=== PATIENT | female | born 1955 ===

== ENCOUNTER 2017-12-13 05:44 | Observation (INO) | payer OTHER ==
[2017-12-13 05:44] VITALS: BMI 29.5
[2017-12-13] MEDS ORDERED: Aspirin 325 mg EC Tablets PO STA (06:04)
--- NOTE | 2017-12-13 06:04 | C.PDOC ---
History Of Present Illness 62 year old female presents to the ED for evaluation of palpitations. Patient reports she was woken up from sleep when she felt her heart racing earlier today. Patient states feeling a little anxious. Patient denies fever, chills, nausea, vomit, CP, SOB, dizziness, headache, numbness, weakness. Time Seen by Provider: 12/13/17 06:04 Chief Complaint (Nursing): Palpitations History Per: Patient History/Exam Limitations: no limitations Onset/Duration Of Symptoms: Hrs Current Symptoms Are (Timing): Still Present Recent travel outside of the [place]: No Additional History Per: Patient Past Medical History Reviewed: Historical Data, Nursing Documentation, Vital Signs Vital Signs: Last Vital Signs Temp 97.9 F 12/13/17 05:50 Pulse 92 H 12/13/17 05:50 Resp 16 12/13/17 05:50 BP 168/84 H 12/13/17 05:50 Pulse Ox 98 12/13/17 05:50 - Medical History PMH: Anxiety, Arthritis, Diabetes, Gastritis, HTN, Hypercholesterolemia, Osteoporosis Denies: Chronic Kidney Disease Surgical History: Cholecystectomy - [facility] Procedures CLOSED ENDOSCOPIC BIOPSY OF LARGE INTESTINE (12/11/13) CORONAR ARTERIOGR-2 CATH (06/27/14) INJECT/INFUSE NEC (10/10/13) INJECTION INTO TENDON (10/21/13) LEFT HEART CARDIAC CATH (06/27/14) LT HEART ANGIOCARDIOGRAM (06/27/14) PHYSICAL THERAPY NEC (08/21/13) Family History: States: No Known Family Hx - Social History Hx Alcohol Use: No Hx Substance Use: No - Immunization History Hx Tetanus Toxoid Vaccination: No Hx Influenza Vaccination: No Hx Pneumococcal Vaccination: No Review Of Systems Constitutional: Negative for: Fever, Chills Cardiovascular: Positive for: Palpitations. Negative for: Chest Pain Respiratory: Negative for: Cough, Shortness of Breath Gastrointestinal: Negative for: Nausea, Vomiting, Abdominal Pain Skin: Negative for: Rash Neurological: Negative for: Weakness, Numbness, Headache, Dizziness Physical Exam - Physical Exam Appears: Non-toxic, No Acute Distress Skin: Warm, Dry Head: Normacephalic Eye(s): bilateral: Normal Inspection Neck: Supple Chest: Symmetrical Cardiovascular: Rhythm Regular Respiratory: No Rales, No Rhonchi, No Wheezing Gastrointestinal/Abdominal: Soft, No Tenderness, No Guarding, No Rebound Extremity: Bilateral: Atraumatic, Normal Color And Temperature, Normal ROM Neurological/Psych: Oriented x3, Normal Speech, Normal Cognition Gait: Steady ED Course And Treatment ECG: Interpreted By Me, Viewed By Me ECG Rhythm: Sinus Rhythm (90), Nonspecific Changes O2 Sat by Pulse Oximetry: 98 (ON RA) Pulse Ox Interpretation: Normal - Radiology CXR: Interpreted by Me, Viewed By Me CXR Interpretation: No: Infiltrates, Fracture, Pnemothorax Progress Note: Plan: - EKG. - Labs. - CXR. - Aspirin 325 mg PO. - UA Disposition Counseled Patient/Family Regarding: Studies Performed, Diagnosis - Disposition Disposition Time: 06:04 Condition: FAIR Forms: [employer] [facility] ([employer]) - Clinical Impression Clinical Impression: Palpitations - Scribe Statement The provider has reviewed the documentation as recorded by the Scribe Bernardino Valdez All medical record entries made by the Scribe were at my direction and personally dictated by me. I have reviewed the chart and agree that the record accurately reflects my personal performance of the history, physical exam, medical decision making, and the department course for this patient. I have also personally directed, reviewed, and agree with the discharge instructions and disposition. Physician Patient Turnover Patient Signed Over To: Vignesh Vidal Handoff Comments: pending labs, re-eval and dispo
[2017-12-13 06:18] LABS: BASO % 0.6 % (0.0-2.0); EOS # 0.3 K/uL (0.0-0.7); EOS % 4.9 % (0.0-4.0); HEMOGLOBIN 13.3 g/dL (11.0-16.0); LYMPH # 2.3 K/uL (1.0-4.3); LYMPH % 33.2 % (20.0-40.0); MEAN CELL VOLUME 84.3 fL (81.0-99.0); MEAN CORPUSCULAR HEMOGLOBIN 28.7 pg (27.0-31.0); MEAN CORPUSCULAR HGB CONC 34.1 g/dL (33.0-37.0); MEAN PLATELET VOLUME 7.3 fL (7.2-11.7); MONO # 0.5 K/uL (0.0-0.8); MONO % 6.5 % (0.0-10.0); NEUT # 3.8 K/uL (1.8-7.0); NEUT % 54.8 % (50.0-75.0); RBC 4.62 Mil/uL (3.80-5.20); RED CELL DISTRIBUTION WIDTH 13.8 % (11.5-14.5); WHITE BLOOD COUNT 6.9 K/uL (4.8-10.8)
[2017-12-13 06:25] LABS: PROTHROMBIN TIME 11.3 SECONDS (9.7-12.2)
[2017-12-13 06:40] LABS: ALB/GLOB RATIO 1.3 (1.0-2.1); ALBUMIN 4.3 g/dL (3.5-5.0); ALT/SGPT 39 U/L (9-52); AST/SGOT 44 U/L (14-36); BLOOD UREA NITROGEN 18 mg/dL (7-17); CALCIUM 9.3 mg/dl (8.6-10.4); GFR NON-AFRICAN AMERICAN > 60
[2017-12-13 07:36] LABS: B-TYPE NATRIURETIC PEPTIDE 37.5 pg/mL (0-900)
[2017-12-13 07:41] LABS: URINE BACTERIA RARE (<OCC); URINE BILIRUBIN NEGATIVE (NEGATIVE); URINE BLOOD NEGATIVE (NEGATIVE); URINE CLARITY Clear (Clear); URINE COLOR Straw (YELLOW); URINE GLUCOSE (UA) NORMAL (Normal); URINE LEUKOCYTE ESTERASE NEG Leu/uL (Negative); URINE PROTEIN NEGATIVE (NEGATIVE); URINE UROBILINOGEN NORMAL mg/dL (0.2-1.0)
--- NOTE | 2017-12-13 09:42 | RAD ---
Date of service: 12/13/2017 PROCEDURE: CHEST RADIOGRAPH, 1 VIEW HISTORY: chest pain COMPARISON: None available. FINDINGS: LUNGS: Clear. PLEURA: No pneumothorax or pleural fluid seen. CARDIOVASCULAR: Normal. OSSEOUS STRUCTURES: No significant abnormalities. VISUALIZED UPPER ABDOMEN: Normal. OTHER FINDINGS: None. IMPRESSION: No active disease.
[2017-12-13] MEDS ORDERED: Sodium Chloride 0.45% 1,000 ML IV SCH (11:00)
[2017-12-13] MEDS ORDERED: Glucagon Recombinant 1 mg Inj IM PRN (11:04)
[2017-12-13] MEDS ORDERED: Dextrose 50% SYRINGE Inj (50 ml) IVP PRN (11:04)
[2017-12-13] MEDS ORDERED: Dextrose 50% SYRINGE Inj (50 ml) IV PRN (11:04)
[2017-12-13] MEDS: (Novolog) Insulin Aspart, Recombinant 100 u/ml 10 ml vial SC SCH ×3 (12:17→22:16)
[2017-12-13 14:27] LABS: CK-MB 0.72 ng/mL (0.0-3.38)
[2017-12-13] MEDS ORDERED: Magnesium Sulfate 1 gm in D5W 1 GM/100 ML BAG IVPB ONE (16:00)
[2017-12-13 16:24] VITALS: RESP 20
--- NOTE | 2017-12-13 16:52 | CP.PCM.HP ---
<Izabela Bradford - Last Filed: 12/13/17 16:45> History of Present Illness - History of Present Illness History of Present Illness: 62 yo female with PMHx of DM presents with palpitations that have been going on for a month. It got particularly worse this morning to the point that she was having chest spasms and was feeling "warm" but not feverish. Patient took home BP and it was more elevated than baseline at 150-160/90s with reported baseline SBP 140s. She is a patient of Dr. Brown, who scheduled a stress test already next week. However she came to the hospital due to her chest feeling worse. She denied taking any of her home meds this morning and went straight to hospital. Patient is looking forward to seeing Dr. Brown on the inpatient floor today. Patient endorses "chest spasms" not chest pain, "warmth" not fever, headaches, lightheadedness. Denies SOB, sweats, fever, chills, sick contacts. Of not patient states she wore a holter monitor last year. The results were normal from her understanding. In the ED she got 325 mg aspirin and labwork done then was sent up to [facility] and put on telemetry. Primary Care: Dr. Hackett Treasury Assistant outpatient: Dr. Brown PMHx: DM - last A1c patient states was 6.something percent, spoke to her primary care Dr. Hackett, who said she is well controlled PSH: hysterectomy 1991 due to uterine CA, cholecystectomy 1979, heel spurs FHx: brother passed from kidney disease and had DM. Mom had DM and passed at 64 y/o from other co-morbidities (?). Patient unsure of exact cause of . Father still alive and prostate CA survivor. SHx: , denies EtOH, tobacco, and illicit drugs. Home meds: enalapril 2.5 mg daily, metformin 850 mg BID, famotidine 20 mg daily (unsure of dose), atorvastatin 10 mg daily, aspiring 81 mg daily chewable Allergies: PCN - reaction was when she was a child. Urticaria. Present on Admission - Present on Admission Any Indicators Present on Admission: Yes Past Patient History - Past Medical History & Family History Past Medical History?: Yes - Past Social History Smoking Status: Never Smoked - CARDIAC Hx Hypercholesterolemia: Yes Hx Hypertension: Yes - PULMONARY Hx Respiratory Disorders: No - NEUROLOGICAL Hx Neurological Disorder: No - HEENT Hx HEENT Problems: No - RENAL Hx Chronic Kidney Disease: No - ENDOCRINE/METABOLIC Hx Diabetes Mellitus Type 2: Yes - HEMATOLOGICAL/ONCOLOGICAL Hx Blood Disorders: No - INTEGUMENTARY Hx Dermatological Problems: No - MUSCULOSKELETAL/RHEUMATOLOGICAL Hx Arthritis: Yes Hx Osteoporosis: Yes - GASTROINTESTINAL Hx Gastritis: Yes - GENITOURINARY/GYNECOLOGICAL Hx Genitourinary Disorders: No - PSYCHIATRIC Hx Anxiety: Yes Hx Substance Use: No - SURGICAL HISTORY Hx Cholecystectomy: Yes - ANESTHESIA Hx Anesthesia: No Hx Anesthesia Reactions: No Hx Malignant Hyperthermia: No Meds Allergies/Adverse Reactions: Allergies Allergy/AdvReac Type Severity Reaction Status Date / Time Penicillins Allergy Verified 12/13/17 05:52 Physical Exam - Head Exam Head Exam: ATRAUMATIC, NORMAL INSPECTION - Eye Exam Eye Exam: EOMI, Normal appearance Pupil Exam: NORMAL ACCOMODATION, PERRL - ENT Exam ENT Exam: Mucous Membranes Moist, Normal Exam - Neck Exam Neck exam: Positive for: Normal Inspection. Negative for: Lymphadenopathy, Tenderness - Respiratory Exam Respiratory Exam: Clear to Auscultation Bilateral, NORMAL BREATHING PATTERN - Cardiovascular Exam Cardiovascular Exam: REGULAR RHYTHM - GI/Abdominal Exam GI & Abdominal Exam: Normal Bowel Sounds, Soft. absent: Diminished Bowel Sounds, Distended, Firm, Guarding, Tenderness - Extremities Exam Extremities exam: Positive for: normal inspection. Negative for: pedal edema, tenderness Additional comments: peripheral pulses strong, no extremity edema - Neurological Exam Neurological exam: Alert, Oriented x3 - Psychiatric Exam Psychiatric exam: Normal Affect, Normal Mood - Skin Skin Exam: Dry, Intact, Normal Color, Warm Results - Vital Signs Recent Vital Signs: Last Vital Signs Temp 98.4 F 12/13/17 15:23 Pulse 63 12/13/17 15:23 Resp 20 12/13/17 15:23 BP 124/72 12/13/17 15:23 Pulse Ox 99 12/13/17 15:23 - Labs Result Diagrams: 12/13/17 06:14 12/13/17 06:14 Labs: Laboratory Results - last 24 hr 12/13/17 12/13/17 12/13/17 06:14 06:14 06:14 WBC 6.9 RBC 4.62 Hgb 13.3 Hct 38.9 MCV 84.3 MCH 28.7 MCHC 34.1 RDW 13.8 Plt Count 287 MPV 7.3 Neut % (Auto) 54.8 Lymph % (Auto) 33.2 King % (Auto) 6.5 Eos % (Auto) 4.9 H Baso % (Auto) 0.6 Neut # (Auto) 3.8 Lymph # (Auto) 2.3 King # (Auto) 0.5 Eos # (Auto) 0.3 Baso # (Auto) 0.0 PT 11.3 INR 1.0 APTT 35 H Sodium 140 Potassium 4.0 Chloride 104 Carbon Dioxide 25 Anion Gap 14 BUN 18 H Creatinine 0.6 L Est GFR ( Amer) > 60 Est GFR (Non-Af Amer) > 60 POC Glucose (mg/dL) Random Glucose 147 H Hemoglobin A1c Calcium 9.3 Phosphorus Magnesium Total Bilirubin 0.3 AST 44 H D ALT 39 Alkaline Phosphatase 88 Total Creatine Kinase CK-MB (Mass) Troponin I < 0.0120 NT-Pro-B Natriuret Pep 37.5 Total Protein 7.7 Albumin 4.3 Globulin 3.4 Albumin/Globulin Ratio 1.3 TSH 3rd Generation 7.92 H Urine Color Urine Clarity Urine pH Ur Specific [place] Urine Protein Urine Glucose (UA) Urine Ketones Urine Blood Urine Nitrate Urine Bilirubin Urine Urobilinogen Ur Leukocyte Esterase Urine WBC (Auto) Urine RBC (Auto) Urine Bacteria 12/13/17 12/13/17 12/13/17 07:34 11:31 13:57 WBC RBC Hgb Hct MCV MCH MCHC RDW Plt Count MPV Neut % (Auto) Lymph % (Auto) King % (Auto) Eos % (Auto) Baso % (Auto) Neut # (Auto) Lymph # (Auto) King # (Auto) Eos # (Auto) Baso # (Auto) PT INR APTT Sodium Potassium Chloride Carbon Dioxide Anion Gap BUN Creatinine Est GFR ( Amer) Est GFR (Non-Af Amer) POC Glucose (mg/dL) 120 H Random Glucose Hemoglobin A1c Calcium Phosphorus 3.5 Magnesium 1.5 L Total Bilirubin AST ALT Alkaline Phosphatase Total Creatine Kinase 24 L CK-MB (Mass) 0.72 Troponin I < 0.0120 NT-Pro-B Natriuret Pep Total Protein Albumin Globulin Albumin/Globulin Ratio TSH 3rd Generation Urine Color Straw Urine Clarity Clear Urine pH 6.0 Ur Specific [place] 1.005 Urine Protein Negative Urine Glucose (UA) Normal Urine Ketones Negative Urine Blood Negative Urine Nitrate Negative Urine Bilirubin Negative Urine Urobilinogen Normal Ur Leukocyte Esterase Neg Urine WBC (Auto) 1 Urine RBC (Auto) < 1 Urine Bacteria Rare 12/13/17 13:57 WBC RBC Hgb Hct MCV MCH MCHC RDW Plt Count MPV Neut % (Auto) Lymph % (Auto) King % (Auto) Eos % (Auto) Baso % (Auto) Neut # (Auto) Lymph # (Auto) King # (Auto) Eos # (Auto) Baso # (Auto) PT INR APTT Sodium Potassium Chloride Carbon Dioxide Anion Gap BUN Creatinine Est GFR ( Amer) Est GFR (Non-Af Amer) POC Glucose (mg/dL) Random Glucose Hemoglobin A1c 6.3 Calcium Phosphorus Magnesium Total Bilirubin AST ALT Alkaline Phosphatase Total Creatine Kinase CK-MB (Mass) Troponin I NT-Pro-B Natriuret Pep Total Protein Albumin Globulin Albumin/Globulin Ratio TSH 3rd Generation Urine Color Urine Clarity Urine pH Ur Specific [place] Urine Protein Urine Glucose (UA) Urine Ketones Urine Blood Urine Nitrate Urine Bilirubin Urine Urobilinogen Ur Leukocyte Esterase Urine WBC (Auto) Urine RBC (Auto) Urine Bacteria Assessment & Plan - Assessment and Plan (Free Text) Assessment: 62 y/o female with DM presents with palpitations for a month. She is currently stable in med tele on telemetry. palpitations r/o ACS and arrhythmia Patient with DM and therefore increased risk of coronary events. Will need to monitor for ACS. Also palpitations will have to follow. 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 Brown who will see pt today and do cardiac cath tomorrow, 12/14 -ECHO - ordered by Dr. Brown request -NPO after midnight, hold chemical anticoagulation DM -accuchecks -hypoglycemic protocol -ISS -patient glucose wnl so far within ideal inpatient range 140-180 -for renoprotection continue with home med enalapril 2.5 mg Gastritis -per patient she has gastritis, unsure of etiology -continue with home med famotidine 20 mg PO daily as protonix 20 mg PO daily DVT ppx: hold chemical AC - SCDs for now GI ppx: home protonix 20 mg PO case discussed with Dr. Octavio Bradford PGY-1 <Lukas Cunningham - Last Filed: 12/15/17 16:36> Results - Vital Signs Recent Vital Signs: Last Vital Signs Temp 98.2 F 12/15/17 09:16 Pulse 76 12/15/17 09:16 Resp 20 12/15/17 09:16 BP 156/63 H 12/15/17 10:00 Pulse Ox 97 12/15/17 09:16 - Labs Result Diagrams: 12/15/17 08:29 12/15/17 08:29 Labs: Laboratory Results - last 24 hr 12/14/17 12/14/17 12/15/17 16:47 22:47 08:29 WBC 6.5 RBC 4.96 Hgb 14.0 Hct 41.9 MCV 84.4 MCH 28.3 MCHC 33.6 RDW 14.0 Plt Count 288 MPV 7.5 Neut % (Auto) 61.5 Lymph % (Auto) 26.9 King % (Auto) 6.7 Eos % (Auto) 4.3 H Baso % (Auto) 0.6 Neut # (Auto) 4.0 Lymph # (Auto) 1.7 King # (Auto) 0.4 Eos # (Auto) 0.3 Baso # (Auto) 0.0 Sodium Potassium Chloride Carbon Dioxide Anion Gap BUN Creatinine Est GFR ( Amer) Est GFR (Non-Af Amer) POC Glucose (mg/dL) 83 89 Random Glucose Calcium Total Bilirubin AST ALT Alkaline Phosphatase Total Protein Albumin Globulin Albumin/Globulin Ratio 12/15/17 08:29 WBC RBC Hgb Hct MCV MCH MCHC RDW Plt Count MPV Neut % (Auto) Lymph % (Auto) King % (Auto) Eos % (Auto) Baso % (Auto) Neut # (Auto) Lymph # (Auto) King # (Auto) Eos # (Auto) Baso # (Auto) Sodium 140 Potassium 4.2 Chloride 104 Carbon Dioxide 26 Anion Gap 15 BUN 13 Creatinine 0.6 L Est GFR ( Amer) > 60 Est GFR (Non-Af Amer) > 60 POC Glucose (mg/dL) Random Glucose 131 H Calcium 9.0 Total Bilirubin 0.7 AST 33 ALT 38 Alkaline Phosphatase 55 Total Protein 8.1 Albumin 4.3 Globulin 3.7 Albumin/Globulin Ratio 1.2 Attending/Attestation - Attestation I have personally seen and examined this patient.: Yes I have fully participated in the care of the patient.: Yes I have reviewed all pertinent clinical information: Yes Notes (Text): seen and examined in the Er with the resident patient is having palpitations with chest spasm and feeling warm during palpitation known DM We will admit and get rn icu consult. R/O ACS and cardiac arrhythmia I agree with the resident's documentation
[2017-12-13] MEDS: Sodium Chloride 0.45% 1,000 ML IV SCH (18:31)
--- NOTE | 2017-12-13 19:29 | CARD ---
APPROVED REPORT Date of service: 12/13/2017 EXAM: Two-dimensional and M-mode echocardiogram with Doppler and color Doppler. Other Information Quality : GoodRhythm : INDICATION Palpitations 2D DIMENSIONS IVSd0.8 (0.7-1.1cm)Aortic Root (2D)2.7 (2.0-3.7cm) LVDd3.7 (3.9-5.9cm)PWd1.0 (0.7-1.1cm) LA Jzovbi24 (18-58mL)LVDs1.9 (2.5-4.0cm) FS (%) 49.7 %LVEF (%)81.8 (>50%) LVEF (Henry's)79.97 %IVC0.00 cm M-Mode DIMENSIONS RVDd1.49 (2.1-3.2cm)Left Atrium (MM)3.03 (2.5-4.0cm) IVSd0.79 (0.7-1.1cm)Aortic Root2.81 (2.2-3.7cm) LVDd4.43 (4.0-5.6cm)Aortic Cusp Exc.2.06 (1.5-2.0cm) PWd1.00 (0.7-1.1cm)FS (%) 46 % LVDs2.40 (2.0-3.8cm)LVEF (%)77 (>50%) Mitral Valve MV E Pnzizwwh59.4cm/sMV A Xvriwjeo15.4cm/sE/A ratio0.8 TDI Lateral E' Peak V10.35cm/sMedial E' Peak V7.77cm/sE/Lateral E'5.8 E/Medial E'7.8 Tricuspid Valve TR Peak Krymulxh068my/sTR Peak Gr.[id number] LEFT VENTRICLE The left ventricle is normal size. There is normal left ventricular wall thickness. Left ventricle systolic function is normal. The Ejection Fraction is >70%. There is normal LV segmental wall motion. The left ventricular diastolic function is abnormal- Grade I-abnormal relaxation pattern. No left ventricle thrombus noted on this study. RIGHT VENTRICLE The right ventricle is normal size. The right ventricular systolic function is normal. ATRIA The left atrium size is normal. The right atrium size is normal. AORTIC VALVE The aortic valve is trileaflet. No aortic regurgitation is present. There is no aortic valvular stenosis. There is no aortic valvular vegetation. MITRAL VALVE Mitral annular calcification is mild. There is no evidence of mitral valve prolapse. There is no mitral valve stenosis. There is no mitral valve regurgitation noted. TRICUSPID VALVE The tricuspid valve is normal in structure. There is trace tricuspid regurgitation. Right ventricular systolic pressure is estimated at less than 30 mmHg. There is no pulmonary hypertension. There is no tricuspid valve prolapse or vegetation. There is no tricuspid valve stenosis. PULMONIC VALVE The pulmonary valve is normal in structure. There is trace pulmonic valvular regurgitation. There is no pulmonic valvular stenosis. GREAT VESSELS The aortic root is normal in size. The IVC is normal in size and collapses >50% with inspiration. PERICARDIAL EFFUSION There is no pericardial effusion. There is no pleural effusion. <Conclusion> The left ventricle is normal size. Left ventricle systolic function is normal. The Ejection Fraction is >70%. The left ventricular diastolic function is abnormal- Grade I-abnormal relaxation pattern. The right ventricle is normal size. The right ventricular systolic function is normal. The left atrium size is normal. The right atrium size is normal. There is trace tricuspid regurgitation. There is trace pulmonic valvular regurgitation.
--- NOTE | 2017-12-13 19:33 | CARD ---
APPROVED REPORT Date of service: 12/13/2017 EKG Measurement Heart [id number] ID [id number] <Conclusion> Normal sinus rhythm Possible Anterolateral infarct, age undetermined Abnormal ECG
[2017-12-13 19:58] LABS: CK-MB 0.63 ng/mL (0.0-3.38)
--- NOTE | 2017-12-13 23:43 | CP.PCM.CON ---
History of Present Illness - History of Present Illness History of Present Illness: CC: Chest Pain and palpitations 62 yo female with PMHx of DM presents with palpitations that have been going on for a month. It got particularly worse this morning to the point that she was having chest spasms and was feeling "warm" but not feverish. Patient took home BP and it was more elevated than baseline at 150-160/90s with reported baseline SBP 140s. She is a patient of Dr. Brown, who scheduled a stress test already next week. However she came to the hospital due to her chest feeling worse. She denied taking any of her home meds this morning and went straight to hospital. Patient is looking forward to seeing Dr. Brown on the inpatient floor today. Patient endorses "chest spasms" not chest pain, "warmth" not fever, headaches, lightheadedness. Denies SOB, sweats, fever, chills, sick contacts. Of not patient states she wore a holter monitor last year. The results were normal from her understanding. In the ED she got 325 mg aspirin and labwork done then was sent up to [email or web address] and put on telemetry. Primary Care: Dr. Hackett Behavior Analyst outpatient: Dr. Brown PMHx: DM - last A1c patient states was 6.something percent, spoke to her primary care Dr. Hackett, who said she is well controlled PSH: hysterectomy 1991 due to uterine CA, cholecystectomy 1979, heel spurs FHx: brother passed from kidney disease and had DM. Mom had DM and passed at 64 y/o from other co-morbidities (?). Patient unsure of exact cause of . Father still alive and prostate CA survivor. SHx: , denies EtOH, tobacco, and illicit drugs. Home meds: enalapril 2.5 mg daily, metformin 850 mg BID, famotidine 20 mg daily (unsure of dose), atorvastatin 10 mg daily, aspiring 81 mg daily chewable Allergies: PCN - reaction was when she was a child. Urticaria. Present on Admission - Present on Admission Any Indicators Present on Admission: Yes Meds Allergies/Adverse Reactions: Allergies Allergy/AdvReac Type Severity Reaction Status Date / Time Penicillins Allergy Verified 12/13/17 05:52 Physical Exam - Head Exam Head Exam: ATRAUMATIC, NORMAL INSPECTION - Eye Exam Eye Exam: EOMI, Normal appearance Pupil Exam: NORMAL ACCOMODATION, PERRL - ENT Exam ENT Exam: Mucous Membranes Moist, Normal Exam - Neck Exam Neck exam: Positive for: Normal Inspection. Negative for: Lymphadenopathy, Tenderness - Respiratory Exam Respiratory Exam: Clear to Auscultation Bilateral, NORMAL BREATHING PATTERN - Cardiovascular Exam Cardiovascular Exam: REGULAR RHYTHM - GI/Abdominal Exam GI & Abdominal Exam: Normal Bowel Sounds, Soft. absent: Diminished Bowel Sounds, Distended, Firm, Guarding, Tenderness - Extremities Exam Extremities exam: Positive for: normal inspection. Negative for: pedal edema, tenderness Additional comments: peripheral pulses strong, no extremity edema - Neurological Exam Neurological exam: Alert, Oriented x3 - Psychiatric Exam Psychiatric exam: Normal Affect, Normal Mood - Skin Skin Exam: Dry, Intact, Normal Color, Warm Assessment & Plan - Assessment and Plan (Free Text) Assessment: 62 y/o female with DM presents with palpitations for a month. She is currently stable in med tele on telemetry. palpitations r/o ACS and arrhythmia Patient with DM and therefore increased risk of coronary events. Will need to monitor for ACS. Also palpitations will have to follow. -serial ROMIs and EKGs q6h x 3, first have been negative -BNP 37.5, TSH 7.92 (H - will follow up outpatient), fasting lipid panel pending -manager cosmetics; no ST changes or arrhythmia appreciated so far -EKG and tele with even RR intervals and regular rhythm pattern, no QT elongation, no delta waves -electrolytes wnl; f/u qAM and also Mg and Phos -Cardiac cath tomorrow, 12/14 -ECHO - ordered by Dr. Brown request -NPO after midnight, hold chemical anticoagulation DM -accuchecks -hypoglycemic protocol -ISS -patient glucose wnl so far within ideal inpatient range 140-180 -for renoprotection continue with home med enalapril 2.5 mg Gastritis -per patient she has gastritis, unsure of etiology -continue with home med famotidine 20 mg PO daily as protonix 20 mg PO daily DVT ppx: hold chemical AC - SCDs for now GI ppx: home protonix 20 mg PO Past Patient History - Past Medical History & Family History Past Medical History?: Yes - Past Social History Smoking Status: Never Smoked - CARDIAC Hx Hypercholesterolemia: Yes Hx Hypertension: Yes - PULMONARY Hx Respiratory Disorders: No - NEUROLOGICAL Hx Neurological Disorder: No - HEENT Hx HEENT Problems: No - RENAL Hx Chronic Kidney Disease: No - ENDOCRINE/METABOLIC Hx Diabetes Mellitus Type 2: Yes - HEMATOLOGICAL/ONCOLOGICAL Hx Blood Disorders: No - INTEGUMENTARY Hx Dermatological Problems: No - MUSCULOSKELETAL/RHEUMATOLOGICAL Hx Arthritis: Yes Hx Osteoporosis: Yes - GASTROINTESTINAL Hx Gastritis: Yes - GENITOURINARY/GYNECOLOGICAL Hx Genitourinary Disorders: No - PSYCHIATRIC Hx Anxiety: Yes Hx Substance Use: No - SURGICAL HISTORY Hx Cholecystectomy: Yes - ANESTHESIA Hx Anesthesia: No Hx Anesthesia Reactions: No Hx Malignant Hyperthermia: No Meds Allergies/Adverse Reactions: Allergies Allergy/AdvReac Type Severity Reaction Status Date / Time Penicillins Allergy Verified 12/13/17 05:52 - Medications Medications: Current Medications Acetaminophen (Tylenol 325mg Tab) 650 mg PO Q6 PRN PRN Reason: Pain, moderate (4-7) Stop: 12/18/17 10:48 Aspirin (Aspirin Chewable) 81 mg PO DAILY [facility] Stop: 12/19/17 10:01 Dextrose (Dextrose 50% Inj) 50 ml IVP ONCE PRN PRN Reason: Hypoglycemia Dextrose (Dextrose 50% Inj) 0 ml IV STAT PRN; Protocol PRN Reason: Hypoglycemia Protocol Dextrose (Glutose 15) 0 gm PO ONCE PRN; Protocol PRN Reason: Hypoglycemia Protocol Enalapril Maleate (Vasotec) 2.5 mg PO DAILY [facility] Stop: 12/18/17 13:01 Last Admin: 12/13/17 12:37 Dose: 2.5 mg Famotidine (Pepcid) 20 mg PO DAILY [facility] Last Admin: 12/13/17 12:37 Dose: 20 mg Glucagon (Glucagen Diagnostic Kit) 0 mg IM STAT PRN; Protocol PRN Reason: Hypoglycemia Protocol Dextrose (Dextrose 5% In Water 1000 Ml) 1,000 mls @ 0 mls/hr IV .Q0M PRN; Protocol PRN Reason: Hypoglycemia Protocol Sodium Chloride (Sodium Chloride 0.45%) 1,000 mls @ 50 mls/hr IV .Q20H [facility] Stop: 12/14/17 19:01 Last Admin: 12/13/17 18:31 Dose: 50 mls/hr Influenza Virus Vaccine (Fluzone Quad 7502-9725) 60 mcg IM .ONCE ONE Stop: 12/14/17 10:01 Insulin Aspart (Novolog) 0 unit SC ACHS [facility]; Protocol Stop: 12/18/17 13:01 Last Admin: 12/13/17 22:16 Dose: Not Given Rosuvastatin Calcium (Crestor) 5 mg PO HS AJ Stop: 12/18/17 22:01 Last Admin: 12/13/17 22:17 Dose: 5 mg Results - Vital Signs Recent Vital Signs: Last Vital Signs Temp 98.4 F 12/13/17 15:23 Pulse 63 12/13/17 15:23 Resp 20 12/13/17 15:23 BP 124/72 12/13/17 15:23 Pulse Ox 99 12/13/17 16:00 - Labs Result Diagrams: 12/13/17 06:14 12/13/17 06:14 Labs: Laboratory Results - last 24 hr 12/13/17 12/13/17 12/13/17 06:14 06:14 06:14 WBC 6.9 RBC 4.62 Hgb 13.3 Hct 38.9 MCV 84.3 MCH 28.7 MCHC 34.1 RDW 13.8 Plt Count 287 MPV 7.3 Neut % (Auto) 54.8 Lymph % (Auto) 33.2 Gonzales % (Auto) 6.5 Eos % (Auto) 4.9 H Baso % (Auto) 0.6 Neut # (Auto) 3.8 Lymph # (Auto) 2.3 Gonzales # (Auto) 0.5 Eos # (Auto) 0.3 Baso # (Auto) 0.0 PT 11.3 INR 1.0 APTT 35 H Sodium 140 Potassium 4.0 Chloride 104 Carbon Dioxide 25 Anion Gap 14 BUN 18 H Creatinine 0.6 L Est GFR ( Amer) > 60 Est GFR (Non-Af Amer) > 60 POC Glucose (mg/dL) Random Glucose 147 H Hemoglobin A1c Calcium 9.3 Phosphorus Magnesium Total Bilirubin 0.3 AST 44 H D ALT 39 Alkaline Phosphatase 88 Total Creatine Kinase CK-MB (Mass) Troponin I < 0.0120 NT-Pro-B Natriuret Pep 37.5 Total Protein 7.7 Albumin 4.3 Globulin 3.4 Albumin/Globulin Ratio 1.3 TSH 3rd Generation 7.92 H Urine Color Urine Clarity Urine pH Ur Specific Liberty Urine Protein Urine Glucose (UA) Urine Ketones Urine Blood Urine Nitrate Urine Bilirubin Urine Urobilinogen Ur Leukocyte Esterase Urine WBC (Auto) Urine RBC (Auto) Urine Bacteria 12/13/17 12/13/17 12/13/17 07:34 11:31 13:57 WBC RBC Hgb Hct MCV MCH MCHC RDW Plt Count MPV Neut % (Auto) Lymph % (Auto) Gonzales % (Auto) Eos % (Auto) Baso % (Auto) Neut # (Auto) Lymph # (Auto) Gonzales # (Auto) Eos # (Auto) Baso # (Auto) PT INR APTT Sodium Potassium Chloride Carbon Dioxide Anion Gap BUN Creatinine Est GFR ( Amer) Est GFR (Non-Af Amer) POC Glucose (mg/dL) 120 H Random Glucose Hemoglobin A1c Calcium Phosphorus 3.5 Magnesium 1.5 L Total Bilirubin AST ALT Alkaline Phosphatase Total Creatine Kinase 24 L CK-MB (Mass) 0.72 Troponin I < 0.0120 NT-Pro-B Natriuret Pep Total Protein Albumin Globulin Albumin/Globulin Ratio TSH 3rd Generation Urine Color Straw Urine Clarity Clear Urine pH 6.0 Ur Specific Liberty 1.005 Urine Protein Negative Urine Glucose (UA) Normal Urine Ketones Negative Urine Blood Negative Urine Nitrate Negative Urine Bilirubin Negative Urine Urobilinogen Normal Ur Leukocyte Esterase Neg Urine WBC (Auto) 1 Urine RBC (Auto) < 1 Urine Bacteria Rare 12/13/17 12/13/17 12/13/17 13:57 17:00 19:28 WBC RBC Hgb Hct MCV MCH MCHC RDW Plt Count MPV Neut % (Auto) Lymph % (Auto) Gonzales % (Auto) Eos % (Auto) Baso % (Auto) Neut # (Auto) Lymph # (Auto) Gonzales # (Auto) Eos # (Auto) Baso # (Auto) PT INR APTT Sodium Potassium Chloride Carbon Dioxide Anion Gap BUN Creatinine Est GFR ( Amer) Est GFR (Non-Af Amer) POC Glucose (mg/dL) 87 Random Glucose Hemoglobin A1c 6.3 Calcium Phosphorus Magnesium Total Bilirubin AST ALT Alkaline Phosphatase Total Creatine Kinase 23 L CK-MB (Mass) 0.63 Troponin I < 0.0120 NT-Pro-B Natriuret Pep Total Protein Albumin Globulin Albumin/Globulin Ratio TSH 3rd Generation Urine Color Urine Clarity Urine pH Ur Specific Liberty Urine Protein Urine Glucose (UA) Urine Ketones Urine Blood Urine Nitrate Urine Bilirubin Urine Urobilinogen Ur Leukocyte Esterase Urine WBC (Auto) Urine RBC (Auto) Urine Bacteria 12/13/17 21:41 WBC RBC Hgb Hct MCV MCH MCHC RDW Plt Count MPV Neut % (Auto) Lymph % (Auto) Gonzales % (Auto) Eos % (Auto) Baso % (Auto) Neut # (Auto) Lymph # (Auto) Gonzales # (Auto) Eos # (Auto) Baso # (Auto) PT INR APTT Sodium Potassium Chloride Carbon Dioxide Anion Gap BUN Creatinine Est GFR ( Amer) Est GFR (Non-Af Amer) POC Glucose (mg/dL) 106 Random Glucose Hemoglobin A1c Calcium Phosphorus Magnesium Total Bilirubin AST ALT Alkaline Phosphatase Total Creatine Kinase CK-MB (Mass) Troponin I NT-Pro-B Natriuret Pep Total Protein Albumin Globulin Albumin/Globulin Ratio TSH 3rd Generation Urine Color Urine Clarity Urine pH Ur Specific Liberty Urine Protein Urine Glucose (UA) Urine Ketones Urine Blood Urine Nitrate Urine Bilirubin Urine Urobilinogen Ur Leukocyte Esterase Urine WBC (Auto) Urine RBC (Auto) Urine Bacteria
[2017-12-14] MEDS: (Novolog) Insulin Aspart, Recombinant 100 u/ml 10 ml vial SC SCH ×4 (07:45→23:15)
[2017-12-14 08:19] LABS: BASO % 0.6 % (0.0-2.0); EOS # 0.3 K/uL (0.0-0.7); EOS % 3.9 % (0.0-4.0); HEMOGLOBIN 12.6 g/dL (11.0-16.0); MEAN CELL VOLUME 83.6 fL (81.0-99.0); MEAN CORPUSCULAR HEMOGLOBIN 28.4 pg (27.0-31.0); MEAN PLATELET VOLUME 7.3 fL (7.2-11.7); MONO # 0.5 K/uL (0.0-0.8); MONO % 7.2 % (0.0-10.0); NEUT # 3.8 K/uL (1.8-7.0); NEUT % 58.3 % (50.0-75.0); RBC 4.44 Mil/uL (3.80-5.20); RED CELL DISTRIBUTION WIDTH 13.9 % (11.5-14.5); WHITE BLOOD COUNT 6.5 K/uL (4.8-10.8)
[2017-12-14 08:49] LABS: ALB/GLOB RATIO 1.2 (1.0-2.1); ALBUMIN 3.7 g/dL (3.5-5.0); ALT/SGPT 25 U/L (9-52); AST/SGOT 40 U/L (14-36); BLOOD UREA NITROGEN 13 mg/dL (7-17); CALCIUM 8.3 mg/dl (8.6-10.4); GFR NON-AFRICAN AMERICAN > 60; HDL CHOLESTEROL 37 mg/dL (30-70)
[2017-12-14 08:51] LABS: LDL CHOLESTEROL 60 mg/dL (0-129)
[2017-12-14] MEDS ORDERED: Influenza Vaccine 60 MCG/0.5 ML SYR (3 yr & up) IM ONE (10:00)
[2017-12-14] MEDS: Sodium Chloride 0.45% 1,000 ML IV SCH (15:10)
--- NOTE | 2017-12-14 15:30 | CP.PCM.PN ---
<Anahy Laguerre - Last Filed: 12/14/17 19:52> Subjective - Date & Time of Evaluation Date of Evaluation: 12/14/17 Time of Evaluation: 13:30 - Subjective Subjective: PGY-1 Medicine Progress Note for Dr. Cunningham 62 year old female with PMH of DM was seen and examined at bedside this afternoon in no acute distress. Nursing states no overnight events. She states that her palpitations are less frequent and is scheduled for Cardiac catheterization later today. She denies any fever, shortness of breath, chest pain at this time. Objective - Vital Signs/Intake and Output Vital Signs (last 24 hours): Temp Pulse Resp BP Pulse Ox 98.1 F 61 20 136/71 99 12/14/17 08:37 12/14/17 08:37 12/14/17 08:37 12/14/17 10:50 12/14/17 08:37 Intake and Output: 12/14/17 12/14/17 06:59 18:59 Intake Total 650 Balance 650 - Medications Medications: Current Medications Acetaminophen (Tylenol 325mg Tab) 650 mg PO Q6 PRN PRN Reason: Pain, moderate (4-7) Stop: 12/18/17 10:48 Aspirin (Aspirin Chewable) 81 mg PO DAILY [facility] Stop: 12/19/17 10:01 Last Admin: 12/14/17 11:48 Dose: 81 mg Dextrose (Dextrose 50% Inj) 50 ml IVP ONCE PRN PRN Reason: Hypoglycemia Dextrose (Dextrose 50% Inj) 0 ml IV STAT PRN; Protocol PRN Reason: Hypoglycemia Protocol Dextrose (Glutose 15) 0 gm PO ONCE PRN; Protocol PRN Reason: Hypoglycemia Protocol Enalapril Maleate (Vasotec) 2.5 mg PO DAILY [facility] Stop: 12/18/17 13:01 Last Admin: 12/14/17 10:50 Dose: 2.5 mg Famotidine (Pepcid) 20 mg PO DAILY [facility] Last Admin: 12/14/17 10:45 Dose: 20 mg Glucagon (Glucagen Diagnostic Kit) 0 mg IM STAT PRN; Protocol PRN Reason: Hypoglycemia Protocol Dextrose (Dextrose 5% In Water 1000 Ml) 1,000 mls @ 0 mls/hr IV .Q0M PRN; Protocol PRN Reason: Hypoglycemia Protocol Sodium Chloride (Sodium Chloride 0.45%) 1,000 mls @ 50 mls/hr IV .Q20H [facility] Stop: 12/14/17 19:01 Last Admin: 12/14/17 15:10 Dose: 50 mls/hr Insulin Aspart (Novolog) 0 unit SC ACHS [facility]; Protocol Stop: 12/18/17 13:01 Last Admin: 12/14/17 11:41 Dose: Not Given Rosuvastatin Calcium (Crestor) 5 mg PO HS [facility] Stop: 12/18/17 22:01 Last Admin: 12/13/17 22:17 Dose: 5 mg - Labs Labs: 12/14/17 08:06 12/14/17 08:06 PT 11.3 SECONDS (9.7-12.2) 12/13/17 06:14 INR 1.0 12/13/17 06:14 APTT 35 SECONDS (21-34) H 12/13/17 06:14 - Constitutional Appears: Well, No Acute Distress - Head Exam Head Exam: ATRAUMATIC, NORMAL INSPECTION, NORMOCEPHALIC - Eye Exam Eye Exam: EOMI, Normal appearance Pupil Exam: NORMAL ACCOMODATION - ENT Exam ENT Exam: Mucous Membranes Moist, Normal Exam - Neck Exam Neck Exam: Normal Inspection - Respiratory Exam Respiratory Exam: Clear to Ausculation Bilateral, NORMAL BREATHING PATTERN. absent: Accessory Muscle Use, Rales, Rhonchi, Wheezes - Cardiovascular Exam Cardiovascular Exam: REGULAR RHYTHM, +S1, +S2. absent: Murmur - GI/Abdominal Exam GI & Abdominal Exam: Soft, Normal Bowel Sounds. absent: Distended, Tenderness - Extremities Exam Extremities Exam: Normal Inspection. absent: Pedal Edema Additional comments: IV access in L forearm peripheral pulses palpable bilateral (radial, DP, PT) - Neurological Exam Neurological Exam: Alert, Awake, CN II-XII Intact, Oriented x3 - Psychiatric Exam Psychiatric exam: Normal Affect, Normal Mood - Skin Skin Exam: Normal Color, Warm Assessment and Plan - Assessment and Plan (Free Text) Assessment: 62 year old female with PMH of DM admitted for heart palpitation x 1 month r/o ACS scheduled for cardiac cath today. Plan: Palpitations r/o ACS - EKG (12/13): NSR @ 90 with even RR intervals and regular rhythm pattern, no QT elongation, no delta waves - CXR (12/13): no active disease - ECHO (12/13): LVEF >70%. LV diastolic function is abnormal - Grade I abnormal relaxation pattern. Trace tricuspid regurg, trace pulmonic valvular regurg. - serial ROMIs and EKGs neg x3 - BNP 37.5, TSH 7.92 on admission - Lipid Panel (12/14) TG 90 Chol 115 LDL 60 HDL 37 - for cath tonight - ASA 81mg po daily - Enalapril 2.5mg po daily - Crestor 5mg po HS - monitor electrolytes on AM labs - monitor on tele Diabetes Mellitus - Hgb A1c (12/13): 6.3 - high ISS - Hypoglycemia protocol - Accucheck ACHS - home Enalapril 2.5mg po daily Gastritis - home Pepcid 20mg po bid PPx DVT: Chemical AC CI for procedure, SCDs GI: home Pepcid 20mg po bid Diet: NPO for catheterization d/w Dr. Octavio Laguerre PGY-1 <Lukas Cunningham - Last Filed: 12/15/17 16:32> Objective - Vital Signs/Intake and Output Vital Signs (last 24 hours): Temp Pulse Resp BP Pulse Ox 98.2 F 76 20 156/63 H 97 12/15/17 09:16 12/15/17 09:16 12/15/17 09:16 12/15/17 10:00 12/15/17 09:16 Intake and Output: 12/15/17 12/15/17 06:59 18:59 Intake Total 560 Balance 560 - Medications Medications: Current Medications Acetaminophen (Tylenol 325mg Tab) 650 mg PO Q6 PRN PRN Reason: Pain, moderate (4-7) Stop: 12/18/17 10:48 Last Admin: 12/14/17 23:00 Dose: 650 mg Aspirin (Aspirin Chewable) 81 mg PO DAILY [facility] Stop: 12/19/17 10:01 Last Admin: 12/15/17 10:02 Dose: 81 mg Dextrose (Dextrose 50% Inj) 50 ml IVP ONCE PRN PRN Reason: Hypoglycemia Dextrose (Dextrose 50% Inj) 0 ml IV STAT PRN; Protocol PRN Reason: Hypoglycemia Protocol Dextrose (Glutose 15) 0 gm PO ONCE PRN; Protocol PRN Reason: Hypoglycemia Protocol Enalapril Maleate (Vasotec) 2.5 mg PO DAILY [facility] Stop: 12/18/17 13:01 Last Admin: 12/15/17 10:00 Dose: 2.5 mg Famotidine (Pepcid) 20 mg PO DAILY [facility] Last Admin: 12/15/17 10:02 Dose: 20 mg Glucagon (Glucagen Diagnostic Kit) 0 mg IM STAT PRN; Protocol PRN Reason: Hypoglycemia Protocol Dextrose (Dextrose 5% In Water 1000 Ml) 1,000 mls @ 0 mls/hr IV .Q0M PRN; Protocol PRN Reason: Hypoglycemia Protocol Sodium Chloride (Sodium Chloride 0.9%) 1,000 mls @ 70 mls/hr IV .[id number] [facility] Last Admin: 12/14/17 22:59 Dose: 70 mls/hr Insulin Aspart (Novolog) 0 unit SC ACHS [facility]; Protocol Stop: 12/18/17 13:01 Last Admin: 12/15/17 15:50 Dose: Not Given Rosuvastatin Calcium (Crestor) 5 mg PO HS [facility] Stop: 12/18/17 22:01 Last Admin: 12/14/17 22:59 Dose: 5 mg - Labs Labs: 12/15/17 08:29 12/15/17 08:29 PT 11.3 SECONDS (9.7-12.2) 12/13/17 06:14 INR 1.0 12/13/17 06:14 APTT 35 SECONDS (21-34) H 12/13/17 06:14 Attending/Attestation - Attestation I have personally seen and examined this patient.: Yes I have fully participated in the care of the patient.: Yes I have reviewed all pertinent clinical information, including history, physical exam and plan: Yes Notes (Text): Seen and examined and the patient is going for cardiac cath as per bath steward we will follow I agree with the resident's documentation
--- NOTE | 2017-12-14 21:34 | CP.PCM.PN ---
Subjective - Date & Time of Evaluation Date of Evaluation: 12/14/17 Time of Evaluation: 21:33 - Subjective Subjective: Patient s/p Cath Normal Coronaries Normal EF OOB to ambulate after 6hrs IV hydration Follow labs Groin checks Objective - Vital Signs/Intake and Output Vital Signs (last 24 hours): Temp Pulse Resp BP Pulse Ox 98.4 F 58 L 20 126/71 98 12/14/17 15:17 12/14/17 15:17 12/14/17 15:17 12/14/17 15:17 12/14/17 15:17 - Medications Medications: Current Medications Acetaminophen (Tylenol 325mg Tab) 650 mg PO Q6 PRN PRN Reason: Pain, moderate (4-7) Stop: 12/18/17 10:48 Aspirin (Aspirin Chewable) 81 mg PO DAILY [facility] Stop: 12/19/17 10:01 Last Admin: 12/14/17 11:48 Dose: 81 mg Dextrose (Dextrose 50% Inj) 50 ml IVP ONCE PRN PRN Reason: Hypoglycemia Dextrose (Dextrose 50% Inj) 0 ml IV STAT PRN; Protocol PRN Reason: Hypoglycemia Protocol Dextrose (Glutose 15) 0 gm PO ONCE PRN; Protocol PRN Reason: Hypoglycemia Protocol Enalapril Maleate (Vasotec) 2.5 mg PO DAILY [facility] Stop: 12/18/17 13:01 Last Admin: 12/14/17 10:50 Dose: 2.5 mg Famotidine (Pepcid) 20 mg PO DAILY [facility] Last Admin: 12/14/17 10:45 Dose: 20 mg Glucagon (Glucagen Diagnostic Kit) 0 mg IM STAT PRN; Protocol PRN Reason: Hypoglycemia Protocol Dextrose (Dextrose 5% In Water 1000 Ml) 1,000 mls @ 0 mls/hr IV .Q0M PRN; Protocol PRN Reason: Hypoglycemia Protocol Sodium Chloride (Sodium Chloride 0.9%) 1,000 mls @ 70 mls/hr IV .[id number] [facility] Insulin Aspart (Novolog) 0 unit SC ACHS [facility]; Protocol Stop: 12/18/17 13:01 Last Admin: 12/14/17 17:06 Dose: Not Given Rosuvastatin Calcium (Crestor) 5 mg PO HS [facility] Stop: 12/18/17 22:01 Last Admin: 12/13/17 22:17 Dose: 5 mg - Labs Labs: 12/14/17 08:06 12/14/17 08:06 PT 11.3 SECONDS (9.7-12.2) 12/13/17 06:14 INR 1.0 12/13/17 06:14 APTT 35 SECONDS (21-34) H 12/13/17 06:14
[2017-12-14] MEDS ORDERED: Midazolam 2 MG/2 ML VIAL ONE (21:36)
--- NOTE | 2017-12-14 21:40 | CARD ---
APPROVED REPORT Date of service: 12/13/2017 EKG Measurement Heart [id number] MA [id number] <Conclusion> Normal sinus rhythm Possible Inferior infarct, age undetermined Abnormal ECG
[2017-12-14] MEDS ORDERED: Sodium Chloride 0.9% 1,000 ML IV SCH ×2 (21:45→23:30)
[2017-12-15 00:49] VITALS: O2SAT 97
--- NOTE | 2017-12-15 07:12 | CP.PCM.PN ---
Subjective - Date & Time of Evaluation Date of Evaluation: 12/15/17 Time of Evaluation: 07:12 Objective - Vital Signs/Intake and Output Vital Signs (last 24 hours): Temp Pulse Resp BP Pulse Ox 97.5 F L 53 L 20 102/53 L 97 12/15/17 04:21 12/15/17 04:21 12/15/17 04:21 12/15/17 04:21 12/15/17 04:21 - Medications Medications: Current Medications Acetaminophen (Tylenol 325mg Tab) 650 mg PO Q6 PRN PRN Reason: Pain, moderate (4-7) Stop: 12/18/17 10:48 Last Admin: 12/14/17 23:00 Dose: 650 mg Aspirin (Aspirin Chewable) 81 mg PO DAILY [facility] Stop: 12/19/17 10:01 Last Admin: 12/14/17 11:48 Dose: 81 mg Dextrose (Dextrose 50% Inj) 50 ml IVP ONCE PRN PRN Reason: Hypoglycemia Dextrose (Dextrose 50% Inj) 0 ml IV STAT PRN; Protocol PRN Reason: Hypoglycemia Protocol Dextrose (Glutose 15) 0 gm PO ONCE PRN; Protocol PRN Reason: Hypoglycemia Protocol Enalapril Maleate (Vasotec) 2.5 mg PO DAILY [facility] Stop: 12/18/17 13:01 Last Admin: 12/14/17 10:50 Dose: 2.5 mg Famotidine (Pepcid) 20 mg PO DAILY [facility] Last Admin: 12/14/17 10:45 Dose: 20 mg Glucagon (Glucagen Diagnostic Kit) 0 mg IM STAT PRN; Protocol PRN Reason: Hypoglycemia Protocol Dextrose (Dextrose 5% In Water 1000 Ml) 1,000 mls @ 0 mls/hr IV .Q0M PRN; Protocol PRN Reason: Hypoglycemia Protocol Sodium Chloride (Sodium Chloride 0.9%) 1,000 mls @ 70 mls/hr IV .[id number] [facility] Last Admin: 12/14/17 22:59 Dose: 70 mls/hr Sodium Chloride (Sodium Chloride 0.9%) 1,000 mls @ 70 mls/hr IV .[id number] [facility] Stop: 12/15/17 11:30 Last Admin: 12/14/17 23:58 Dose: Not Given Insulin Aspart (Novolog) 0 unit SC ACHS [facility]; Protocol Stop: 12/18/17 13:01 Last Admin: 12/14/17 23:15 Dose: Not Given Rosuvastatin Calcium (Crestor) 5 mg PO HS AJ Stop: 12/18/17 22:01 Last Admin: 12/14/17 22:59 Dose: 5 mg - Labs Labs: 12/14/17 08:06 12/14/17 08:06 PT 11.3 SECONDS (9.7-12.2) 12/13/17 06:14 INR 1.0 12/13/17 06:14 APTT 35 SECONDS (21-34) H 12/13/17 06:14
[2017-12-15] MEDS: (Novolog) Insulin Aspart, Recombinant 100 u/ml 10 ml vial SC SCH ×2 (08:21→15:50)
[2017-12-15 08:40] LABS: BASO % 0.6 % (0.0-2.0); EOS # 0.3 K/uL (0.0-0.7); EOS % 4.3 % (0.0-4.0); LYMPH # 1.7 K/uL (1.0-4.3); LYMPH % 26.9 % (20.0-40.0); MEAN CELL VOLUME 84.4 fL (81.0-99.0); MEAN CORPUSCULAR HEMOGLOBIN 28.3 pg (27.0-31.0); MEAN CORPUSCULAR HGB CONC 33.6 g/dL (33.0-37.0); MEAN PLATELET VOLUME 7.5 fL (7.2-11.7); MONO # 0.4 K/uL (0.0-0.8); MONO % 6.7 % (0.0-10.0); NEUT % 61.5 % (50.0-75.0); RBC 4.96 Mil/uL (3.80-5.20); WHITE BLOOD COUNT 6.5 K/uL (4.8-10.8)
[2017-12-15 08:59] LABS: ALB/GLOB RATIO 1.2 (1.0-2.1); ALBUMIN 4.3 g/dL (3.5-5.0); ALT/SGPT 38 U/L (9-52); AST/SGOT 33 U/L (14-36); BLOOD UREA NITROGEN 13 mg/dL (7-17); GFR NON-AFRICAN AMERICAN > 60
[2017-12-15 09:17] VITALS: BP 156/63; PULSE 76; TEMP 98.2
--- NOTE | 2017-12-15 13:29 | CP.PCM.PN ---
<Lei Trejo - Last Filed: 12/15/17 13:28> Subjective - Date & Time of Evaluation Date of Evaluation: 12/15/17 Time of Evaluation: 13:28 - Subjective Subjective: Spoke to Dr. Brown on the phone. Patient is cleared for discharge and to follow up in his office in 1 month. Objective - Vital Signs/Intake and Output Vital Signs (last 24 hours): Temp Pulse Resp BP Pulse Ox 98.2 F 76 20 156/63 H 97 12/15/17 09:16 12/15/17 09:16 12/15/17 09:16 12/15/17 10:00 12/15/17 09:16 Intake and Output: 12/15/17 12/15/17 06:59 18:59 Intake Total 560 Balance 560 - Medications Medications: Current Medications Acetaminophen (Tylenol 325mg Tab) 650 mg PO Q6 PRN PRN Reason: Pain, moderate (4-7) Stop: 12/18/17 10:48 Last Admin: 12/14/17 23:00 Dose: 650 mg Aspirin (Aspirin Chewable) 81 mg PO DAILY [facility] Stop: 12/19/17 10:01 Last Admin: 12/15/17 10:02 Dose: 81 mg Dextrose (Dextrose 50% Inj) 50 ml IVP ONCE PRN PRN Reason: Hypoglycemia Dextrose (Dextrose 50% Inj) 0 ml IV STAT PRN; Protocol PRN Reason: Hypoglycemia Protocol Dextrose (Glutose 15) 0 gm PO ONCE PRN; Protocol PRN Reason: Hypoglycemia Protocol Enalapril Maleate (Vasotec) 2.5 mg PO DAILY [facility] Stop: 12/18/17 13:01 Last Admin: 12/15/17 10:00 Dose: 2.5 mg Famotidine (Pepcid) 20 mg PO DAILY [facility] Last Admin: 12/15/17 10:02 Dose: 20 mg Glucagon (Glucagen Diagnostic Kit) 0 mg IM STAT PRN; Protocol PRN Reason: Hypoglycemia Protocol Dextrose (Dextrose 5% In Water 1000 Ml) 1,000 mls @ 0 mls/hr IV .Q0M PRN; Protocol PRN Reason: Hypoglycemia Protocol Sodium Chloride (Sodium Chloride 0.9%) 1,000 mls @ 70 mls/hr IV .[id number] [facility] Last Admin: 12/14/17 22:59 Dose: 70 mls/hr Insulin Aspart (Novolog) 0 unit SC ACHS [facility]; Protocol Stop: 12/18/17 13:01 Last Admin: 12/15/17 08:21 Dose: Not Given Rosuvastatin Calcium (Crestor) 5 mg PO HS [facility] Stop: 12/18/17 22:01 Last Admin: 12/14/17 22:59 Dose: 5 mg - Labs Labs: 12/15/17 08:29 12/15/17 08:29 PT 11.3 SECONDS (9.7-12.2) 12/13/17 06:14 INR 1.0 12/13/17 06:14 APTT 35 SECONDS (21-34) H 12/13/17 06:14 <Lukas Cunningham - Last Filed: 12/15/17 16:27> Objective - Vital Signs/Intake and Output Vital Signs (last 24 hours): Temp Pulse Resp BP Pulse Ox 98.2 F 76 20 156/63 H 97 12/15/17 09:16 12/15/17 09:16 12/15/17 09:16 12/15/17 10:00 12/15/17 09:16 Intake and Output: 12/15/17 12/15/17 06:59 18:59 Intake Total 560 Balance 560 - Medications Medications: Current Medications Acetaminophen (Tylenol 325mg Tab) 650 mg PO Q6 PRN PRN Reason: Pain, moderate (4-7) Stop: 12/18/17 10:48 Last Admin: 12/14/17 23:00 Dose: 650 mg Aspirin (Aspirin Chewable) 81 mg PO DAILY [facility] Stop: 12/19/17 10:01 Last Admin: 12/15/17 10:02 Dose: 81 mg Dextrose (Dextrose 50% Inj) 50 ml IVP ONCE PRN PRN Reason: Hypoglycemia Dextrose (Dextrose 50% Inj) 0 ml IV STAT PRN; Protocol PRN Reason: Hypoglycemia Protocol Dextrose (Glutose 15) 0 gm PO ONCE PRN; Protocol PRN Reason: Hypoglycemia Protocol Enalapril Maleate (Vasotec) 2.5 mg PO DAILY [facility] Stop: 12/18/17 13:01 Last Admin: 12/15/17 10:00 Dose: 2.5 mg Famotidine (Pepcid) 20 mg PO DAILY [facility] Last Admin: 12/15/17 10:02 Dose: 20 mg Glucagon (Glucagen Diagnostic Kit) 0 mg IM STAT PRN; Protocol PRN Reason: Hypoglycemia Protocol Dextrose (Dextrose 5% In Water 1000 Ml) 1,000 mls @ 0 mls/hr IV .Q0M PRN; Protocol PRN Reason: Hypoglycemia Protocol Sodium Chloride (Sodium Chloride 0.9%) 1,000 mls @ 70 mls/hr IV .[id number] AJ Last Admin: 12/14/17 22:59 Dose: 70 mls/hr Insulin Aspart (Novolog) 0 unit SC ACHS [facility]; Protocol Stop: 12/18/17 13:01 Last Admin: 12/15/17 15:50 Dose: Not Given Rosuvastatin Calcium (Crestor) 5 mg PO HS [facility] Stop: 12/18/17 22:01 Last Admin: 12/14/17 22:59 Dose: 5 mg - Labs Labs: 12/15/17 08:29 12/15/17 08:29 PT 11.3 SECONDS (9.7-12.2) 12/13/17 06:14 INR 1.0 12/13/17 06:14 APTT 35 SECONDS (21-34) H 12/13/17 06:14 Attending/Attestation - Attestation I have personally seen and examined this patient.: Yes I have fully participated in the care of the patient.: Yes I have reviewed all pertinent clinical information, including history, physical exam and plan: Yes
--- NOTE | 2017-12-15 13:29 | CP.PCM.DIS ---
<Lei Trejo - Last Filed: 12/15/17 16:02> Provider - Provider Date of Admission: 12/13/17 07:45 Attending physician: Lukas Cunningham MD Time Spent in preparation of Discharge (in minutes): 45 Diagnosis - Discharge Diagnosis (1) S/P cardiac cath Status: Resolved (2) Chest pain Status: Resolved (3) Palpitations Status: Resolved Hospital Course - Lab Results Lab Results: Most Recent Lab Values WBC 6.5 K/uL (4.8-10.8) 12/15/17 08:29 RBC 4.96 Mil/uL (3.80-5.20) 12/15/17 08:29 Hgb 14.0 g/dL (11.0-16.0) 12/15/17 08: Hct 41.9 % (34.0-47.0) 12/15/17 08: MCV 84.4 fL (81.0-99.0) 12/15/17 08: MCH 28.3 pg (27.0-31.0) 12/15/17 08: MCHC 33.6 g/dL (33.0-37.0) 12/15/17 08: RDW 14.0 % (11.5-14.5) 12/15/17 08: Plt Count 288 K/uL (130-400) 12/15/17 08:29 MPV 7.5 fL (7.2-11.7) 12/15/17 08: Neut % (Auto) 61.5 % (50.0-75.0) 12/15/17 08: Lymph % (Auto) 26.9 % (20.0-40.0) 12/15/17 08: Dickenson % (Auto) 6.7 % (0.0-10.0) 12/15/17 08: Eos % (Auto) 4.3 % (0.0-4.0) H 12/15/17 08: Baso % (Auto) 0.6 % (0.0-2.0) 12/15/17 08: Neut # (Auto) 4.0 K/uL (1.8-7.0) 12/15/17 08: Lymph # (Auto) 1.7 K/uL (1.0-4.3) 12/15/17 08:29 Dickenson # (Auto) 0.4 K/uL (0.0-0.8) 12/15/17 08:29 Eos # (Auto) 0.3 K/uL (0.0-0.7) 12/15/17 08:29 Baso # (Auto) 0.0 K/uL (0.0-0.2) 12/15/17 08:29 PT 11.3 SECONDS (9.7-12.2) 12/13/17 06:14 INR 1.0 12/13/17 06:14 APTT 35 SECONDS (21-34) H 12/13/17 06:14 Sodium 140 mmol/L (132-148) 12/15/17 08:29 Potassium 4.2 mmol/L (3.6-5.2) 12/15/17 08:29 Chloride 104 mmol/L (98-107) 12/15/17 08:29 Carbon Dioxide 26 mmol/L (22-30) 12/15/17 08:29 Anion Gap 15 (10-20) 12/15/17 08:29 BUN 13 mg/dL (7-17) 12/15/17 08:29 Creatinine 0.6 mg/dL (0.7-1.2) L 12/15/17 08:29 Est GFR ( Amer) > 60 12/15/17 08:29 Est GFR (Non-Af Amer) > 60 12/15/17 08:29 POC Glucose (mg/dL) 89 mg/dL (65-110) 12/14/17 22:47 Random Glucose 131 mg/dL (65-105) H 12/15/17 08:29 Hemoglobin A1c 6.3 % (4.2-6.5) 12/13/17 13:57 Calcium 9.0 mg/dl (8.6-10.4) 12/15/17 08:29 Phosphorus 3.5 mg/dL (2.5-4.5) 12/13/17 13:57 Magnesium 1.5 mg/dL (1.6-2.3) L 12/13/17 13:57 Total Bilirubin 0.7 mg/dL (0.2-1.3) 12/15/17 08:29 AST 33 U/L (14-36) 12/15/17 08:29 ALT 38 U/L (9-52) 12/15/17 08:29 Alkaline Phosphatase 55 U/L (38-126) 12/15/17 08:29 Total Creatine Kinase 23 U/L (30-135) L 12/13/17 19:28 CK-MB (Mass) 0.63 ng/mL (0.0-3.38) 12/13/17 19:28 Troponin I < 0.0120 ng/mL (0.00-0.120) 12/13/17 19:28 NT-Pro-B Natriuret Pep 37.5 pg/mL (0-900) 12/13/17 06:14 Total Protein 8.1 g/dL (6.3-8.3) 12/15/17 08:29 Albumin 4.3 g/dL (3.5-5.0) 12/15/17 08: Globulin 3.7 gm/dL (2.2-3.9) 12/15/17 08: Albumin/Globulin Ratio 1.2 (1.0-2.1) 12/15/17 08:29 Triglycerides 90 mg/dL (0-149) 12/14/17 08:06 Cholesterol 115 mg/dL (0-199) 12/14/17 08:06 LDL Cholesterol Direct 60 mg/dL (0-129) 12/14/17 08:06 HDL Cholesterol 37 mg/dL (30-70) 12/14/17 08:06 TSH 3rd Generation 7.92 mIU/L (0.46-4.68) H 12/13/17 06:14 Urine Color Straw (YELLOW) 12/13/17 07:34 Urine Clarity Clear (Clear) 12/13/17 07:34 Urine pH 6.0 (5.0-8.0) 12/13/17 07:34 Ur Specific Elida 1.005 (1.003-1.030) 12/13/17 07:34 Urine Protein Negative mg/dL (NEGATIVE) 12/13/17 07:34 Urine Glucose (UA) Normal mg/dL (Normal) 12/13/17 07:34 Urine Ketones Negative mg/dL (NEGATIVE) 12/13/17 07:34 Urine Blood Negative (NEGATIVE) 12/13/17 07:34 Urine Nitrate Negative (NEGATIVE) 12/13/17 07:34 Urine Bilirubin Negative (NEGATIVE) 12/13/17 07:34 Urine Urobilinogen Normal mg/dL (0.2-1.0) 12/13/17 07:34 Ur Leukocyte Esterase Neg Irish/uL (Negative) 12/13/17 07:34 Urine WBC (Auto) 1 /hpf (0-5) 12/13/17 07:34 Urine RBC (Auto) < 1 /hpf (0-3) 12/13/17 07:34 Urine Bacteria Rare (<OCC) 12/13/17 07:34 - Hospital Course Hospital Course: 62 yo female with PMHx of DM presents with palpitations that have been going on for a month. It got particularly worse this morning to the point that she was having chest spasms and was feeling "warm" but not feverish. At the course of her hospital stay, patient was treated with Tylenol, Aspirin, Vasotec, Pepcid, Cresto, IV fluids, and insulin. EKG showed NSR @ 90 with even RR intervals and regular rhythm pattern, no QT elongation, no delta waves. CXR showed no active disease, Echo showed: LVEF >70%. LV diastolic function is abnormal - Grade I abnormal relaxation pattern. Trace tricuspid regurg, trace pulmonic valvular regurg. Cardiology (Dr. Brown) was consulted and performed a cardiac cath that showed normal ejection fraction and normal coronaries. Upon discharge, patient was instructed to take Aspirin 81mg once daily by mouth and to continue to take all her home medications as prescribed by her doctor. She was also instructed to follow up at [facility] within 1 week of discharge and follow up with Heavy Equipment Technician, Dr. Brown in 1 month in his office. To resume diet and exercise as tolerated, eat a heart healthy diet, eat more fruits and vegetables. She was also instructed to return to the Emergency room for worsening or newly concerning symptoms. Discharge Exam - Head Exam Head Exam: ATRAUMATIC, NORMAL INSPECTION, NORMOCEPHALIC - Additional Findings Additional findings: - Constitutional Appears: Well, No Acute Distress - Head Exam Head Exam: ATRAUMATIC, NORMAL INSPECTION, NORMOCEPHALIC - Eye Exam Eye Exam: EOMI, Normal appearance Pupil Exam: NORMAL ACCOMODATION - ENT Exam ENT Exam: Mucous Membranes Moist, Normal Exam - Neck Exam Neck Exam: Normal Inspection - Respiratory Exam Respiratory Exam: Clear to Ausculation Bilateral, NORMAL BREATHING PATTERN. absent: Accessory Muscle Use, Rales, Rhonchi, Wheezes - Cardiovascular Exam Cardiovascular Exam: REGULAR RHYTHM, +S1, +S2. absent: Murmur - GI/Abdominal Exam GI & Abdominal Exam: Soft, Normal Bowel Sounds. absent: Distended, Tenderness - Extremities Exam Extremities Exam: Normal Inspection. absent: Pedal Edema Additional comments: IV access in L forearm peripheral pulses palpable bilateral (radial, DP, PT) - Neurological Exam Neurological Exam: Alert, Awake, CN II-XII Intact, Oriented x3 - Psychiatric Exam Psychiatric exam: Normal Affect, Normal Mood - Skin Skin Exam: Normal Color, Warm Discharge Plan - Discharge Medications Prescriptions: RX: Aspirin [Aspirin Chewable] 81 mg PO DAILY #30 chew - Follow Up Plan Condition: FAIR Disposition: HOME/ ROUTINE Instructions: Heart Healthy Diet, Cardiac Catheterization (DC), Aspirin, Palpitations (DC) Additional Instructions: 1. Please take Aspirin 81mg once daily by mouth. 2. Continue to take all your home medications as prescribed by your doctor. 3. Follow up at [facility] within 1 week of discharge. 4. Follow up with Heavy Equipment Technician, Dr. Brown in 1 month in his office. 5. Resume diet and exercise as tolerated. 6. Eat a heart healthy diet, eat more fruits and vegetables. Avoid greasy, fatty, and fried food. 7. Return to the Emergency room for worsening or newly concerning symptoms. Referrals: [facility] [Outside] Jatin Brown MD [Staff Provider] - <Lukas Cunningham - Last Filed: 12/15/17 16:27> Provider - Provider Date of Admission: 12/13/17 07:45 Attending physician: Lukas Cunningham MD Hospital Course - Lab Results Lab Results: Most Recent Lab Values WBC 6.5 K/uL (4.8-10.8) 12/15/17 08:29 RBC 4.96 Mil/uL (3.80-5.20) 12/15/17 08:29 Hgb 14.0 g/dL (11.0-16.0) 12/15/17 08:29 Hct 41.9 % (34.0-47.0) 12/15/17 08:29 MCV 84.4 fL (81.0-99.0) 12/15/17 08: MCH 28.3 pg (27.0-31.0) 12/15/17 08: MCHC 33.6 g/dL (33.0-37.0) 12/15/17 08: RDW 14.0 % (11.5-14.5) 12/15/17 08: Plt Count 288 K/uL (130-400) 12/15/17: MPV 7.5 fL (7.2-11.7) 12/15/17 08: Neut % (Auto) 61.5 % (50.0-75.0) 12/15/17 08: Lymph % (Auto) 26.9 % (20.0-40.0) 12/15/17: Dickenson % (Auto) 6.7 % (0.0-10.0) 12/15/17: Eos % (Auto) 4.3 % (0.0-4.0) H 12/15/17 08: Baso % (Auto) 0.6 % (0.0-2.0) 12/15/17: Neut # (Auto) 4.0 K/uL (1.8-7.0) 12/15/17 08: Lymph # (Auto) 1.7 K/uL (1.0-4.3) 12/15/17 08: Dickenson # (Auto) 0.4 K/uL (0.0-0.8) 12/15/17 08: Eos # (Auto) 0.3 K/uL (0.0-0.7) 12/15/17: Baso # (Auto) 0.0 K/uL (0.0-0.2) 12/15/17 08: PT 11.3 SECONDS (9.7-12.2) 12/13/17 06:14 INR 1.0 12/13/17 06:14 APTT 35 SECONDS (21-34) H 12/13/17 06:14 Sodium 140 mmol/L (132-148) 12/15/17 08: Potassium 4.2 mmol/L (3.6-5.2) 12/15/17 08: Chloride 104 mmol/L (98-107) 12/15/17 08:29 Carbon Dioxide 26 mmol/L (22-30) 12/15/17 08:29 Anion Gap 15 (10-20) 12/15/17 08:29 BUN 13 mg/dL (7-17) 12/15/17 08:29 Creatinine 0.6 mg/dL (0.7-1.2) L 11 08:29 Est GFR ( Amer) > 60 12/15/17 08:29 Est GFR (Non-Af Amer) > 60 12/15/17 08:29 POC Glucose (mg/dL) 89 mg/dL (65-110) 12/14/17 22:47 Random Glucose 131 mg/dL (65-105) H 12/15/17 08:29 Hemoglobin A1c 6.3 % (4.2-6.5) 12/13/17 13:57 Calcium 9.0 mg/dl (8.6-10.4) 12/15/17 08:29 Phosphorus 3.5 mg/dL (2.5-4.5) 12/13/17 13:57 Magnesium 1.5 mg/dL (1.6-2.3) L 12/13/17 13:57 Total Bilirubin 0.7 mg/dL (0.2-1.3) 12/15/17 08:29 AST 33 U/L (14-36) 12/15/17 08:29 ALT 38 U/L (9-52) 12/15/17 08:29 Alkaline Phosphatase 55 U/L (38-126) 12/15/17 08:29 Total Creatine Kinase 23 U/L (30-135) L 12/13/17 19:28 CK-MB (Mass) 0.63 ng/mL (0.0-3.38) 12/13/17 19:28 Troponin I < 0.0120 ng/mL (0.00-0.120) 12/13/17 19:28 NT-Pro-B Natriuret Pep 37.5 pg/mL (0-900) 12/13/17 06:14 Total Protein 8.1 g/dL (6.3-8.3) 12/15/17 08:29 Albumin 4.3 g/dL (3.5-5.0) 12/15/17 08:29 Globulin 3.7 gm/dL (2.2-3.9) 12/15/17 08:29 Albumin/Globulin Ratio 1.2 (1.0-2.1) 12/15/17 08:29 Triglycerides 90 mg/dL (0-149) 12/14/17 08:06 Cholesterol 115 mg/dL (0-199) 12/14/17 08:06 LDL Cholesterol Direct 60 mg/dL (0-129) 12/14/17 08:06 HDL Cholesterol 37 mg/dL (30-70) 12/14/17 08:06 TSH 3rd Generation 7.92 mIU/L (0.46-4.68) H 12/13/17 06:14 Urine Color Straw (YELLOW) 12/13/17 07:34 Urine Clarity Clear (Clear) 12/13/17 07:34 Urine pH 6.0 (5.0-8.0) 12/13/17 07:34 Ur Specific Elida 1.005 (1.003-1.030) 12/13/17 07:34 Urine Protein Negative mg/dL (NEGATIVE) 12/13/17 07:34 Urine Glucose (UA) Normal mg/dL (Normal) 12/13/17 07:34 Urine Ketones Negative mg/dL (NEGATIVE) 12/13/17 07:34 Urine Blood Negative (NEGATIVE) 12/13/17 07:34 Urine Nitrate Negative (NEGATIVE) 12/13/17 07:34 Urine Bilirubin Negative (NEGATIVE) 12/13/17 07:34 Urine Urobilinogen Normal mg/dL (0.2-1.0) 12/13/17 07:34 Ur Leukocyte Esterase Neg Irish/uL (Negative) 12/13/17 07:34 Urine WBC (Auto) 1 /hpf (0-5) 12/13/17 07:34 Urine RBC (Auto) < 1 /hpf (0-3) 12/13/17 07:34 Urine Bacteria Rare (<OCC) 12/13/17 07:34 Attending/Attestation - Attestation I have personally seen and examined this patient.: Yes I have fully participated in the care of the patient.: Yes I have reviewed all pertinent clinical information, including history, physical exam and plan: Yes Notes (Text): seen and examined d/w patient about out patient follow up with electronic operator Asked to resume her home meds
--- NOTE | 2017-12-15 23:58 | CARD ---
APPROVED REPORT Date of service: 12/13/2017 EKG Measurement Heart [id number] <Conclusion> Normal sinus rhythm Normal ECG
--- NOTE | 2017-12-17 18:28 | CARDCATH ---
PROCEDURE DATE: 12/14/2017 PROCEDURES: 1. Left heart catheterization. 2. Coronary angiogram. CLINICAL INDICATIONS: 1. Chest pain. 2. Hypertension. 3. Hyperlipidemia. 4. Diabetes. 5. Abnormal stress test. REFERRING PHYSICIAN: Chantelle Hdz MD PERFORMING PHYSICIAN: Jatin Brown MD DESCRIPTION OF PROCEDURE: After informed consent, the patient was prepped and draped in the usual sterile fashion. A 2% lidocaine was given in the right groin for local anesthesia. Using micropuncture technique, a 6-St Lucian sheath was introduced to the right common femoral artery. JR4 6-St Lucian diagnostic catheter crossed into left ventricle across the aortic valve. LV and diastolic pressure measured. Contrast injected and LV angiogram was done. Then, the catheter was pulled back across the aortic valve. Gradient across the aortic valve was measured. The catheter was engaged into right coronary artery. Contrast injected and right coronary angiogram was done. Then, the catheter was exchanged to JL4 6-St Lucian diagnostic catheter. The catheter was engaged into left main coronary artery. Contrast injected and left coronary angiogram was done. The patient tolerated the procedure well. Postprocedure, Mynx closure device applied with excellent hemostasis. Radiological supervision and radiological interpretation of the coronary imaging was done. FINDINGS: 1. Left main coronary artery is patent. 2. LAD and diagonal branches are patent. 3. Left circumflex and obtuse marginal branches are patent. 4. Right coronary artery is dominant and patent. 5. Left ventricular ejection fraction is approximately 60%. No wall motion abnormalities noted. EDP is 18. No gradient across the aortic valve. IMPRESSION: 1. Normal coronaries. 2. Normal left ventricular systolic function. PLAN: Recommend medical management. Jatin Brown MD
== END 2017-12-15 16:59 | disposition home or self-care (01) ==
LOC: C.ER 05:44 → C.6T 07:45
PROVIDERS: ADMIT Internal Medicine; ATTEND Internal Medicine
DX: R07.9 Chest pain, unspecified (principal); R00.2 Palpitations; E11.9 Type 2 diabetes mellitus without complications; E78.00 Pure hypercholesterolemia, unspecified; I10 Essential (primary) hypertension; E78.5 Hyperlipidemia, unspecified; M81.0 Age-related osteoporosis without current pathological fracture; Z79.82 Long term (current) use of aspirin; Z79.84 Long term (current) use of oral hypoglycemic drugs; Z79.899 Other long term (current) drug therapy; Z83.3 Family history of diabetes mellitus; Z85.42 Personal history of malignant neoplasm of other parts of uterus; Z90.49 Acquired absence of other specified parts of digestive tract; Z90.710 Acquired absence of both cervix and uterus
CPT/HCPCS: 36415; 71045; 80053; 80061; 81001; 82948; 83036; 83735; 83880; 84100; 84443; 84484; 85025; 85610; 85730; 93005; 93306; 93458; 99152; 99153; 99285; C1769; C1887; C1893; G0378; J2250; J3010; J3475; J7030

== ENCOUNTER 2018-05-03 14:09 | Outpatient (CLI) | payer OTHER | END 2018-05-03 14:10 | disposition home or self-care (01) | LOC: C.MAMMO 14:09 | DX: N64.4 Mastodynia (principal) ==

== ENCOUNTER 2018-05-22 10:31 | Outpatient (CLI) | payer OTHER | END 2018-05-22 13:35 | disposition home or self-care (01) | LOC: C.SPRAD 10:31 ==

== ENCOUNTER 2018-06-22 13:02 | Outpatient (CLI) | payer OTHER | END 2018-06-22 13:03 | disposition home or self-care (01) | LOC: C.PAT 13:02 | DX: N60.92 Unspecified benign mammary dysplasia of left breast (principal) ==

== ENCOUNTER 2018-06-29 09:33 | Day surgery (SDC) | payer OTHER ==
[2018-06-22 13:19] VITALS: BMI 29.0
[2018-06-29] MEDS ORDERED: Vancomycin 1 gm/D5W 200 ml 0 GM/0 ML BAG IVPB ONE (13:28)
[2018-06-29] MEDS ORDERED: Propofol 10 mg/ml Inj (20 ML) ONE (13:31)
[2018-06-29] MEDS ORDERED: Oxycodone/Acetaminophen 5/325 mg Tab PO PRN (14:38)
--- NOTE | 2018-06-29 14:42 | PCM.SURG1 ---
Surgeon's Initial Post Op Note - Surgeon's Notes Surgeon: Dr. Rankin Dial Marker: Mike PGY4, PGY2 Type of Anesthesia: General Endo Pre-Operative Diagnosis: Left Breast Atypical Ductal Hyperplasia Operative Findings: Wire and Clip removed with specimen. appropriate hemostatsis achieved. for details see op note Post-Operative Diagnosis: As Above Operation Performed: Left Breast Excision Biopsy with needle localization Specimen/Specimens Removed: 1. Left Breast with Wire and Clip Estimated Blood Loss: EBL {In ML}: 10 Drains Used: No Drains Post-Op Condition: Good Date of Surgery/Procedure: 06/29/18 Time of Surgery/Procedure: 14:42
[2018-06-29] MEDS ORDERED: Lactated Ringer's 1,000 ML IV SCH (14:45)
--- NOTE | 2018-06-29 15:40 | MAM ---
Date of service: 06/29/2018 PROCEDURE: Left breast wire localization HISTORY: Left breast atypical ductal hyperplasia and focal atypical lobular hyperplasia CONSENT: The time-out, which included patient's full name, date of , description of the expected procedure and procedure site, was performed immediately before the procedure to confirm patient's identity. Informed consent was obtained. PROCEDURE: Wire localization using mammographic guidance was performed for the Left breast atypical ductal hyperplasia and focal atypical lobular hyperplasia The skin was prepped in the usual manner. 4 cc of lidocaine 1% was injected into the subcutaneous tissue at the access site to provide local anesthesia. A superior approach was used with a 7.5 cm needle and wire. A wire was inserted into the targeted area under mammographic guidance. Post placement mammographic imaging demonstrates the thick segment of the wire appropriately located in the targeted area. IMPRESSION: Left breast wire localization was successful with no apparent post-procedure complications. X-ray of the surgical specimen demonstrates distal aspect of the wire, a biopsy marker clip, and calcifications PATHOLOGY: Pending.
[2018-06-29 17:01] VITALS: RESP 18; TEMP 98
[2018-06-29 17:51] VITALS: BP 133/74; PULSE 64; O2SAT 97
--- NOTE | 2018-06-30 01:39 | OP ---
PROCEDURE DATE: 06/29/2018 SURGEON: Rommel Rankin MD ASSISTANTS: Miller Mckeon DO, PGY-4 and Nick Arreguin DO, PGY-2. ANESTHESIA: General. ANESTHESIOLOGIST: Katerina Daigle MD PREOPERATIVE DIAGNOSIS: Left breast atypical ductal hyperplasia. POSTOPERATIVE DIAGNOSIS: Left breast atypical ductal hyperplasia. PROCEDURE: Left breast excisional biopsy with needle localization. ESTIMATED BLOOD LOSS: 10 mL. SPECIMEN: Left breast mass. INDICATION OF PROCEDURE: This is a 62-year-old female, previous stereotactic biopsy had revealed atypical ductal hyperplasia. Determination and discussion with the patient was then made to undergo excisional biopsy of the left breast. The patient agreed to the procedure. All risks and benefits of the procedure were set forth and the patient agreed. DESCRIPTION OF PROCEDURE: The patient was brought into the operating room and placed in supine position. The laterality was confirmed with estelle and the needle in the left breast. General anesthesia was then induced and endotracheal tube placement was then confirmed with end-tidal CO2. The patient was also hooked up to EKG monitors. The patient was then prepped and draped in the usual sterile fashion. A time-out was taken confirming correct patient, procedure, and laterality. Needle localization was done prior to the OR. A single incision was made just superior to where the wire was exiting using a #10 blade. The wire was delivered into the wound. Combination of sharp and blunt dissection using Bovie electrocautery was made to haul the wire. Dissection was then taken down circumferentially, taking care including the entire localizing needle and a wide margin of grossly normal tissue. The specimen and entire localizing wire were removed. The specimen was oriented and then sent to Radiology with localization studies. Confirmation was then received at the entire target including the wire and clip was totally resected. The wound was then copiously irrigated and hemostasis was achieved with Bovie electrocautery. The wound was then closed with 3-0 Vicryl sutures and 4-0 Monocryl in a running subcuticular fashion. No attempt was made to close the space. Steri-Strips were then placed as sterile dressing. The patient was awakened and extubated and taken to the postanesthesia care unit in stable condition. All counts were correct at the end of the case. Dr. Rankin was present and participated in all aspects of the case. Nick Arreguin DO Rommel Rankin MD [id number]
== END 2018-06-29 17:47 | disposition home or self-care (01) ==
LOC: C.SDS 09:33
PROVIDERS: ATTEND Specialist
DX: N60.92 Unspecified benign mammary dysplasia of left breast (principal)
CPT/HCPCS: 19101; 19281; 82948; 88307; J2270; J2405; J2704; J3010; J7120